=== PATIENT | female | born 1945 | race Caucasian/White ===

== ENCOUNTER 2023-02-09 23:01 | Observation (INO) ==
[2023-02-10 00:09] LABS: Basophils # (auto) 0.08 K/uL (0.00-0.20); Basophils % (auto) 0.8 %; Eosinophils # (auto) 0.07 K/uL (0.00-0.50); Eosinophils % (auto) 0.7 %; Hemoglobin 10.8 g/dl (12.0-16.0); Immature Granulocytes # (auto) 0.02 K/uL (0.01-0.20); Immature Granulocytes % (auto) 0.2 %; Lymphocytes # (auto) 1.73 K/uL (1.20-3.40); Lymphocytes % (auto) 16.7 %; Mean Corpuscular Hemoglobin 30.9 pg (25.0-34.0); Mean Corpuscular Hgb Conc 33.8 g/dL (32.0-36.0); Mean Corpuscular Volume 91.7 fL (80.0-100.0); Monocytes # (auto) 0.54 K/uL (0.11-0.59); Monocytes % (auto) 5.2 %; Neutrophils # (auto) 7.95 K/uL (1.40-6.50); Neutrophils % (auto) 76.4 %; Platelet Count 247 K/uL (130-400); RDW Coefficient of Variation 13.4 % (11.5-14.5); RDW Standard Deviation 45.2 fL (36.4-46.3); Red Blood Count 3.49 M/uL (4.20-5.40); White Blood Count 10.39 K/ul (4.8-10.8)
[2023-02-10 00:23] LABS: BUN Creatinine Ratio 37.5 (10-20); Calcium 8.8 mg/dl (8.6-10.3); Creatinine Clr Calc Pharmacy 62.3 ml/min; Est GFR (African American) 101.2 ml/min; Est GFR (Non-African American) 87.3 ml/min; Potassium 3.3 mmol/L (3.5-5.1)
--- NOTE | 2023-02-10 00:26 | Emergency Department Note ---
Impression & Plan Epistaxis ED Provider Note NAME: SHAGUFTA GARCIA AGE: 77 SEX: F : 1945 ARRIVES VIA: Ambulance INFORMANT: Patient, ED PROVIDER(S): Catherine Moser MD CHIEF COMPLAINT: Epistaxis HPI: This is a 77-year-old female presenting for persistent epistaxis. Patient was seen here 2 times yesterday. Upon second visit here, she was anteriorly packed with Rhino Rocket. She had resolution of her symptoms however today in the last 30 minutes has had slow oozing. She notes prior to this she had more brisk bleeding in her posterior oropharynx. She swallowed blood and then had a episode of vomiting of bright red blood. She does not take any blood thinners at this time, she was stopped on her aspirin. ROS: See above HPI for pertinent positives & negatives. A total of 10 systems reviewed and were otherwise negative. PAST MEDICAL HISTORY: See Below PAST SURGICAL HISTORY: See Below FAMILY HISTORY: See Below SOCIAL HISTORY: See Below HOME MEDICATIONS: See Below ALLERGIES: See Below VITALS: See Below PHYSICAL EXAMINATION: General: resting comfortably in no acute distress Head: Normocephalic and atraumatic Eyes: Normal inspection, extraocular muscles intact Ear, nose, throat: Normal external exam, dried blood overlying the Rhino Rocket without active bleeding Neck: Normal range of motion Respiratory: lungs clear to auscultation bilaterally Cardiovascular: Regular rate/rhythm, no murmur GI: soft, nontender, no guarding or rebound Extremities: nontender, moves all extremities Neuro: The patient awake and alert, appropriately conversive, no focal deficits, symmetric faces Skin: Warm, dry, and intact MEDICAL DECISION MAKING: This is 77-year-old female presenting for persistent epistaxis. Patient's epistaxis may have resolved at this time, I see no blood in the posterior oropharynx, no oozing around the Rhino Rocket. Upon checking records appears that patient was inflated with 2.5 cc of air in the Rhino Rocket. Will inflate this further. Patient tolerated 7.5 cc of air in the Rhino Rocket at this time. I was called to the room as patient had brisk bleeding in the now left naris. Present there is oozing around the right naris around the Rhino Rocket. Removed the old Rhino Rocket, patient had no continued bleeding the left naris, likely continued bleeding in the right naris. Due to now third visit for this and failed anterior packing, will do posterior packing. The posterior packing was soaked in TXA and inserted into the nares. 10 cc of air was insufflated. Patient had almost complete resolution of her epistaxis within 1 minute. Had her rinse her mouth to observe for persistent posterior bleeding. Upon my recent mission patient has had minimal/no bleeding. She appears clinically better, no longer vomiting bright red blood/blood clots. Given Zofran, placed on continuous monitoring. Discussed with Dr. Figueroa, ENT. Can be admitted to medicine service there is no rebleeding. Discussed with Dr. Bowman, stable for admission at this time for observation of posterior packing Laboratory showed anemia to now 10.8. Otherwise no leukocytosis, slight hypokalemia. Differential diagnosis: Anterior wrist posterior epistaxis ER treatment provided: See below Diagnostics interpreted by me: ECG: None Cardiac Monitoring: An order was placed for continuous cardiac monitoring. The monitor shows a rate of 80 with sinus rhythm. Laboratory studies: As stated above and show below. Critical Care Note: I have personally spent 30 minutes of critical care time in the direct management of this patient. This includes bedside care, interpretation of diagnostic studies, and testing, discussion with consultants, patient, and family members, and other required patient management activities. This 30 minutes is in excess of all separately billable procedures. Past Med/Surg History Medical History Hyperlipidemia Hypertension Social History Smoking Status: Current every day smoker Tobacco Type: Cigarettes Preferred Language: [place] Verdean Feels Safe at Home: Yes Allergies Allergies Allergy/AdvReac Type Severity Reaction Status Date / Time azithromycin [From Zithromax] Allergy Intermediate Rash Verified 02/10/23 00:15 Penicillins Allergy Intermediate Rash Verified 02/10/23 00:15 Home Meds Home Medications Medication Instructions Recorded Confirmed atorvastatin 40 mg tablet 40 mg PO HS 02/21/20 02/10/23 multivitamin 1 tab PO QAM 02/21/20 02/10/23 sulfasalazine 500 mg tablet 1,000 mg PO BID 02/21/20 02/10/23 zolpidem 10 mg tablet 5 - 10 mg PO HS PRN Sleep 02/21/20 02/10/23 metoprolol succinate 100 mg 100 mg PO DAILY 02/10/23 02/10/23 tablet,extended release 24 hr omega-3 fatty acids 1,000 mg 1,000 mg PO DAILY 02/10/23 02/10/23 capsule Previous Rx's Medication Instructions Recorded doxycycline hyclate 100 mg tablet 100 mg PO BID #6 tabs 02/09/23 Results & Data (ED) Vital Signs Vital Signs - 24 hr 02/09/23 23:05 02/09/23 23:06 02/09/23 23:06 Temperature Temperature Source Pulse Rate 80 82 Pulse Rate from SpO2 Sensor 83 Respiratory Rate 23 Blood Pressure 189/94 H Blood Pressure Mean 114 Pulse Oximetry 98 Sepsis Recent Fever Within 48 Hours Sepsis New/Unexplained Change in Mental Status Sepsis Action Taken by Nursing 02/09/23 23:07 02/09/23 23:30 02/10/23 00:00 Temperature 37 C Temperature Source Oral Pulse Rate 85 78 82 Pulse Rate from SpO2 Sensor 79 82 Respiratory Rate 15 16 20 Blood Pressure 189/94 H Blood Pressure Mean 125 Pulse Oximetry 97 97 99 Sepsis Recent Fever Within 48 Hours No Sepsis New/Unexplained Change in Mental Status N/A Sepsis Action Taken by Nursing No Action Required Laboratory Data 02/09/23 23:53 02/09/23 23:53 Lab Results 02/09/23 Range/Units 23:53 WBC 10.39 (4.8-10.8) K/ul RBC 3.49 L (4.20-5.40) M/uL Hgb 10.8 L (12.0-16.0) g/dl Hct 32.0 L (37.0-47.0) % MCV 91.7 (80.0-100.0) fL MCH 30.9 (25.0-34.0) pg MCHC 33.8 (32.0-36.0) g/dL RDW Std Deviation 45.2 (36.4-46.3) fL RDW Coeff of Brian 13.4 (11.5-14.5) % Plt Count 247 (130-400) K/uL MPV 10.0 (9.4-12.4) fL Immature Gran % (Auto) 0.2 % Neut % (Auto) 76.4 % Lymph % (Auto) 16.7 % Cache % (Auto) 5.2 % Eos % (Auto) 0.7 % Baso % (Auto) 0.8 % Neut # (Auto) 7.95 H (1.40-6.50) K/uL Lymph # (Auto) 1.73 (1.20-3.40) K/uL Cache # (Auto) 0.54 (0.11-0.59) K/uL Eos # (Auto) 0.07 (0.00-0.50) K/uL Baso # (Auto) 0.08 (0.00-0.20) K/uL Immature Gran # (Auto) 0.02 (0.01-0.20) K/uL Sodium 145 (136-145) mmol/L Potassium 3.3 L (3.5-5.1) mmol/L Chloride 110 H (98-107) mmol/L Carbon Dioxide 30 (21-32) mmol/L Anion Gap 5 (3-11) BUN 24 H (6-23) mg/dl Creatinine 0.64 (0.6-1.2) mg/dl Est Cr Clr Drug Dosing 62.3 ml/min Est GFR ( Amer) 101.2 ml/min Est GFR (Non-Af Amer) 87.3 ml/min BUN/Creatinine Ratio 37.5 H (10-20) Glucose 139 H (70-99(Fasting)) mg/dl Calcium 8.8 (8.6-10.3) mg/dl Blood Type O Negative Antibody Screen NEGATIVE Administered Medications Discontinued Medications Ondansetron HCl (Ondansetron Inj 2 Mg/Ml 2 Ml Vial) Confirm Administered Dose 4 mg .ROUTE [employer] ONE Stop: 02/10/23 01:03 Last Admin: 02/10/23 01:39 Dose: Not Given Documented By: TAVO Ondansetron HCl (Ondansetron Inj 2 Mg/Ml 2 Ml Vial) 4 mg IV NOW STA Stop: 02/10/23 01:39 Last Admin: 02/10/23 01:10 Dose: 4 mg Documented By: TAVO Tranexamic Acid (Txa 10% Non-Iv Routes 100 Mg/Ml Vial) Confirm Administered Dose 1,000 mg .ROUTE [employer] ONE Stop: 02/10/23 00:52 Last Admin: 02/10/23 01:39 Dose: Not Given Documented By: TAVO Tranexamic Acid (Txa 10% Non-Iv Routes 100 Mg/Ml Vial) 1,000 mg NA ONE ONE Stop: 02/10/23 01:38 Last Admin: 02/10/23 01:00 Dose: 1,000 mg Documented By: TAVO Discharge Plan Visit Data Chief Complaint: Nose Bleed (Minor) ED Provider: Catherine Moser Discharge Problem: Epistaxis Forms Stand Alone Forms: My [facility] Prescriptions Prescriptions: No Action atorvastatin 40 mg tablet 40 mg PO HS sulfasalazine 500 mg tablet 1,000 mg PO BID zolpidem 10 mg tablet 5 - 10 mg PO HS PRN (Reason: Sleep) multivitamin [Multiple Vitamin] Tablet 1 tab PO QAM doxycycline hyclate 100 mg tablet 100 mg PO BID Qty: 6 0RF Rx Instructions: STARTED 02/09/23 omega-3 fatty acids 1,000 mg Capsule 1,000 mg PO DAILY metoprolol succinate 100 mg tablet extended release 24 hr 100 mg PO DAILY Referrals Referrals: Eduar Hawkins CRNP [Primary Care Provider] -
[2023-02-10] MEDS ORDERED: TXA 10% Non-IV Routes 100 MG/ML VIAL ONE ×2 (00:51→01:37)
[2023-02-10] MEDS ORDERED: ONDANSETRON INJ 2 MG/ML 2 ML VIAL ONE (01:02)
[2023-02-10] MEDS ORDERED: ONDANSETRON INJ 2 MG/ML 2 ML VIAL IV STA (01:38)
--- NOTE | 2023-02-10 03:23 | History & Physical Report ---
Date of Service February 10, 2023 Assessment & Plan (1) Right-sided nosebleed: Plan: 77-year-old female with past med history significant for CAD s/p stents, ulcerative colitis, hyperlipidemia, insomnia, ongoing tobacco abuse, chronic rhinitis, abdominal aortic aneurysm, carotid stenosis, left popliteal cyst, solitary nodule of lung, presents with epistaxis. Patient was in the ER on February 08 two times for right sided nosebleed. Initially prior to coming to the ER the bleeding stopped. The bleeding recurred so came back to the ER again and s/p initially sprayed TXA but has bleeding picked up gain so 4.5 rapid Rhino soaked in TXA solution was placed in right nostril. After 15 minutes the bleeding started again so was replaced with 5.5 rapid Rhino soaked in TXA and lidocaine with epinephrine was placed. Packing was inflated with about 2.5 cc o f air. The patient was discharged with p.o. doxycycline. Patient again comes today because of slow oozing of blood from same right-sided nostril. And she was swallowing blood and vomiting it up. She stopped aspirin. Today in the ER again same Rhino Rocket was inflated with 7.5 cc of air. There was again some oozing of the right nares through the Rhino Rocket. Old anterior Rhino Rocket was removed. Posterior packing was soaked with TXA and inserted and 10 cc of air was inflated and seems complete resolution of epistaxis. Right-sided nosebleed Recurrent as mentioned above Currently s/p posterior nasal packing Aspirin held Continue doxycycline Will keep her n.p.o. Follow labs Consult ENT in a.m. History of CAD S/p stents many years ago Holding aspirin Continue statin and beta-jamir Close monitor History of ulcerative colitis On sulfasalazine Hyperlipidemia On statin Ongoing tobacco abuse Needs counseling DVT prophylaxis SCDs for now Disposition Med/tele Full code History of Present Illness Chief Complaint: Epistaxis Primary Care Provider: RITU Ramirez 77-year-old female with past med history significant for CAD s/p stents, ulcerative colitis, hyperlipidemia, insomnia, ongoing tobacco abuse, chronic rhinitis, abdominal aortic aneurysm, carotid stenosis, left popliteal cyst, solitary nodule of lung, presents with epistaxis. Patient was in the ER on February 08 two times for right sided nosebleed. Initially prior to coming to the ER the bleeding stopped. The bleeding recurred so came back to the ER again and s/p initially sprayed TXA but has bleeding picked up gain so 4.5 rapid Rhino soaked in TXA solution was placed in right nostril. After 15 minutes the bleeding started again so was replaced with 5.5 rapid Rhino soaked in TXA and lidocaine with epinephrine was placed. Packing was inflated with about 2.5 cc of air. The patient was discharged with p.o. doxycycline. Patient again comes today because of slow oozing of blood from same right-sided nostril. And she was swallowing blood and vomiting it up. She stopped aspirin. Today in the ER again same Rhino Rocket was inflated with 7.5 cc of air. There was again some oozing of the right nares through the Rhino Rocket. Old anterior Rhino Rocket was removed. Posterior packing was soaked with TXA and inserted and 10 cc of air was inflated and seems complete resolution of epistaxis. ER discussed with on-call ENT. We are called for admission for observation. Patient thinks there could be small oozing on the back of the throat but not sure. Has some headache. Has some cough. Last few days she has some cold symptoms. No sore throat. Feeling somewhat hot. No chest pain. Earlier she was feeling short of breath but that resolved now. Has had a lot of nausea . No abdominal pain. Normal bowel and bladder movements. Currently resting comfortably and hemodynamically stable. Past medical history. As mentioned above Past surgical history. Cardiac catheterization stents to LAD and RCA. Total hy sterectomy. Tonsillectomy with adenoid tube. Appendectomy. Bilateral cataract extraction. Right wrist surgery. Social history.'s smoking 1.5 packs a day for many years. Denies alcohol use. No drug use. Family history. Father had brain aneurysm. Mother had heart disease. Allergies Allergy/AdvReac Type Severity Reaction Status Date / Time azithromycin [From Zithromax] Allergy Intermediate Rash Verified 02/10/23 00:15 Penicillins Allergy Intermediate Rash Verified 02/10/23 00:15 Home Medications Medication Instructions Recorded Confirmed Type atorvastatin 40 mg tablet 40 mg PO HS 02/21/20 02/10/23 History multivitamin 1 tab PO QAM 02/21/20 02/10/23 History sulfasalazine 500 mg tablet 1,000 mg PO BID 02/21/20 02/10/23 History zolpidem 10 mg tablet 5 - 10 mg PO HS PRN Sleep 02/21/20 02/10/23 History doxycycline hyclate 100 mg tablet 100 mg PO BID #6 tabs 02/09/23 02/10/23 Rx metoprolol succinate 100 mg 100 mg PO DAILY 02/10/23 02/10/23 History tablet,extended release 24 hr omega-3 fatty acids 1,000 mg 1,000 mg PO DAILY 02/10/23 02/10/23 History capsule Past Med/Surg History Medical History Hyperlipidemia Hypertension Social History Smoking Status: Current every day smoker Tobacco Type: Cigarettes Hx Alcohol Use: No Hx Substance Use: No Preferred Language: Bulgarian Communication Ability: Effective Sound Effects Person Required: No Beliefs That Will Affect Care: None Current Living Situation: Alone Current Living Situation Comment: family lives next door Feels Safe at Home: Yes Safety Concerns: Feels Safe At This Time Assistive Devices: Denture - Upper, Denture - Lower, Glasses and Hearing Aid - Bilateral Review of Systems Review of Systems: All systems reviewed & are unremarkable except as noted in HPI & below Physical Exam Physical Exam: General- Not in distress Head- atraumatic Eyes- PERRL. ENT- Nasal packing seen Neck- supple, no JVD. Lungs- clear to auscultation no wheezing or crackles. Heart- regular rhythm; no murmur, no gallop. Abdomen- normal bowel sounds, soft, nontender, no distension. Extremities- no pretibial edema, no erythema seen. Neuro- alert, oriented x 3; PERRL, no facial palsy; no dysarthria; moves extremities. Skin- warm & dry Results & Data Results & Data Vital Signs (Past 12 Hours) Vital Signs Temp Pulse Resp BP Pulse Ox 02/10/23 00:00 82 20 99 02/09/23 23:30 78 16 97 02/09/23 23:07 37 C 85 15 189/94 H 97 02/09/23 23:06 82 23 98 02/09/23 23:06 80 02/09/23 23:05 189/94 H Diagnostic Findings Laboratory Results WBC 10.39 K/ul (4.8-10.8) 02/09/23 23:53 RBC 3.49 M/uL (4.20-5.40) L 02/09/23 23:53 Hgb 10.8 g/dl (12.0-16.0) L 02/09/23 23:53 Hct 32.0 % (37.0-47.0) L 02/09/23 23:53 MCV 91.7 fL (80.0-100.0) 02/09/23 23:53 MCH 30.9 pg (25.0-34.0) 02/09/23 23:53 MCHC 33.8 g/dL (32.0-36.0) 02/09/23 23:53 RDW Std Deviation 45.2 fL (36.4-46.3) 02/09/23 23:53 RDW Coeff of Brian 13.4 % (11.5-14.5) 02/09/23 23:53 Plt Count 247 K/uL (130-400) 02/09/23 23:53 MPV 10.0 fL (9.4-12.4) 02/09/23 23:53 Immature Gran % (Auto) 0.2 % 02/09/23 23:53 Neut % (Auto) 76.4 % 02/09/23 23:53 Lymph % (Auto) 16.7 % 02/09/23 23:53 Hall % (Auto) 5.2 % 02/09/23 23:53 Eos % (Auto) 0.7 % 02/09/23 23:53 Baso % (Auto) 0.8 % 02/09/23 23:53 Neut # (Auto) 7.95 K/uL (1.40-6.50) H 02/09/23 23:53 Lymph # (Auto) 1.73 K/uL (1.20-3.40) 02/09/23 23:53 Hall # (Auto) 0.54 K/uL (0.11-0.59) 02/09/23 23:53 Eos # (Auto) 0.07 K/uL (0.00-0.50) 02/09/23 23:53 Baso # (Auto) 0.08 K/uL (0.00-0.20) 02/09/23 23:53 Immature Gran # (Auto) 0.02 K/uL (0.01-0.20) 02/09/23 23:53 Sodium 145 mmol/L (136-145) 02/09/23 23:53 Potassium 3.3 mmol/L (3.5-5.1) L 02/09/23 23:53 Chloride 110 mmol/L (98-107) H 02/09/23 23:53 Carbon Dioxide 30 mmol/L (21-32) 02/09/23 23:53 Anion Gap 5 (3-11) 02/09/23 23:53 BUN 24 mg/dl (6-23) H 02/09/23 23:53 Creatinine 0.64 mg/dl (0.6-1.2) 02/09/23 23:53 Est Cr Clr Drug Dosing 62.3 ml/min 02/09/23 23:53 Est GFR ( Amer) 101.2 ml/min 02/09/23 23:53 Est GFR (Non-Af Amer) 87.3 ml/min 02/09/23 23:53 BUN/Creatinine Ratio 37.5 (10-20) H 02/09/23 23:53 Glucose 139 mg/dl (70-99(Fasting)) H 02/09/23 23:53 Calcium 8.8 mg/dl (8.6-10.3) 02/09/23 23:53 Blood Type O Negative 02/09/23 23:53 Antibody Screen NEGATIVE 02/09/23 23:53 Code Status & VTE Plan VTE Prophylaxis Plan VTE Prophylaxis will be ordered: Yes
[2023-02-10] MEDS ORDERED: ZOLPIDEM TARTRATE 5 MG TAB PO PRN (06:25)
[2023-02-10] MEDS ORDERED: NITROGLYCERIN SL 0.4 MG/TAB TAB SL PRN (06:25)
[2023-02-10] MEDS ORDERED: ACETAMINOPHEN 325 MG TAB PO PRN (06:25)
[2023-02-10] MEDS ORDERED: D5W AND 1/2NSS 1,000 ML IV SCH (06:25)
[2023-02-10] MEDS ORDERED: ONDANSETRON INJ 2 MG/ML 2 ML VIAL IV PRN (06:25)
[2023-02-10] MEDS ORDERED: METOPROLOL SUCC 50MG EXT REL TAB PO SCH (09:00)
[2023-02-10 09:12] LABS: Basophils # (auto) 0.09 K/uL (0.00-0.20); Eosinophils # (auto) 0.01 K/uL (0.00-0.50); Eosinophils % (auto) 0.1 %; Hematocrit (blood only) 30.6 % (37.0-47.0); Hemoglobin 9.9 g/dl (12.0-16.0); Immature Granulocytes # (auto) 0.03 K/uL (0.01-0.20); Immature Granulocytes % (auto) 0.3 %; Lymphocytes % (auto) 23.1 %; Mean Corpuscular Hgb Conc 32.4 g/dL (32.0-36.0); Mean Corpuscular Volume 92.7 fL (80.0-100.0); Mean Platelet Volume 9.9 fL (9.4-12.4); Monocytes # (auto) 0.53 K/uL (0.11-0.59); Monocytes % (auto) 5.8 %; Neutrophils # (auto) 6.35 K/uL (1.40-6.50); Neutrophils % (auto) 69.7 %; Platelet Count 227 K/uL (130-400); RDW Coefficient of Variation 13.3 % (11.5-14.5); RDW Standard Deviation 45.9 fL (36.4-46.3); White Blood Count 9.11 K/ul (4.8-10.8)
[2023-02-10] MEDS: MULTIVITAMIN TAB PO SCH (09:16)
[2023-02-10] MEDS: DOXYCYCLINE HYCLATE 100 MG CAP PO SCH ×2 (09:16→20:57)
[2023-02-10] MEDS: sulfaSALAzine 500 MG TABLET PO SCH ×2 (09:16→20:57)
[2023-02-10 09:27] LABS: BUN Creatinine Ratio 48.2 (10-20); Calcium 8.3 mg/dl (8.6-10.3); Creatinine Clr Calc Pharmacy 65.6 ml/min; Est GFR (African American) 105.7 ml/min; Est GFR (Non-African American) 91.2 ml/min; Magnesium 1.7 mg/dl (1.7-2.4); Potassium 3.1 mmol/L (3.5-5.1)
--- NOTE | 2023-02-10 09:54 | Communication Note ---
Date of Service: February 10, 2023 77-year-old female with past med history significant for CAD s/p stents, ulcerative colitis, hyperlipidemia, insomnia, ongoing tobacco abuse, chronic rh initis, abdominal aortic aneurysm, carotid stenosis, left popliteal cyst, solitary nodule of lung, presents with epistaxis. Reported she has been having cold symptoms for over a week. Then epistaxis started 2 days ago, intermittent, necessitating multiple ER visit Recurred despite packing Admitted a few hours ago for monitoring and ENT evaluation. Patient reports no bleeding since coming upstairs a few hours ago. Reported mild headache earlier but none at this time. Has stopped her ASA 81mg still epistaxis started Denied OTC NSAID use. Acknowledged OTC meds for her cold Exam notable for elderly woman, packed right nose. Labs notable for Hb of 10.8 yesterday and 9.9 today (Did not see old records of labs); K of 3.1. Monitor Hb Monitor for bleeding Hold antiplatelet. No anticoagulants Continue doxycycline Discussed with ENT Dr Figueroa. She recommends that if no bleeding, no further intervention at this time. Patient will need to keep packing for 3-5 days Continue antibiotics If stable, i will plan to dc tomorrow morning Replete hypokalemia Monitor electrolytes Other plans as detailed in H&P this AM by Dr Bowman
[2023-02-10] MEDS ORDERED: POTASSIUM CHLORIDE CRTAB 20 MEQ TABCR PO STA (10:11)
[2023-02-10 15:54] LABS: Hematocrit (blood only) 29.2 % (37.0-47.0); Hemoglobin 9.6 g/dl (12.0-16.0)
--- NOTE | 2023-02-10 16:59 | Communication Note ---
Date of Service: February 10, 2023 Discussed patient's course with hospitalist. No ongoing bleeding. Recommend leaving packing in place for 3-5 days, will need to return to ED or can seek care with external ENT for removal as no physician in our office for the next week. Afrin TID and nasal saline spray QID. Recommend abx (keflex) while packing in place. F/u after packing removal for exam.
[2023-02-10] MEDS: METOPROLOL SUCC 50MG EXT REL TAB PO SCH (20:56)
[2023-02-10] MEDS ORDERED: ATORVASTATIN 40 MG TAB PO SCH (21:00)
[2023-02-11] MEDS: METOPROLOL SUCC 50MG EXT REL TAB PO SCH (08:38)
[2023-02-11] MEDS: MULTIVITAMIN TAB PO SCH (08:39)
[2023-02-11] MEDS: DOXYCYCLINE HYCLATE 100 MG CAP PO SCH (08:39)
[2023-02-11] MEDS: sulfaSALAzine 500 MG TABLET PO SCH (08:39)
[2023-02-11 08:54] LABS: Hematocrit (blood only) 28.4 % (37.0-47.0); Hemoglobin 9.6 g/dl (12.0-16.0); Mean Corpuscular Hemoglobin 30.7 pg (25.0-34.0); Mean Corpuscular Hgb Conc 33.8 g/dL (32.0-36.0); Mean Corpuscular Volume 90.7 fL (80.0-100.0); Mean Platelet Volume 10.1 fL (9.4-12.4); Platelet Count 223 K/uL (130-400); RDW Coefficient of Variation 13.2 % (11.5-14.5); RDW Standard Deviation 44.2 fL (36.4-46.3); Red Blood Count 3.13 M/uL (4.20-5.40); White Blood Count 12.29 K/ul (4.8-10.8)
[2023-02-11 09:09] LABS: BUN Creatinine Ratio 33.9 (10-20); Calcium 8.6 mg/dl (8.6-10.3); Creatinine Clr Calc Pharmacy 68.1 ml/min; Est GFR (African American) 105.7 ml/min; Est GFR (Non-African American) 91.2 ml/min; Magnesium 1.6 mg/dl (1.7-2.4); Phosphorus 3.1 mg/dl (2.5-4.9); Potassium 3.3 mmol/L (3.5-5.1)
[2023-02-11] MEDS ORDERED: POTASSIUM CHLORIDE CRTAB 20 MEQ TABCR PO STA (09:14)
[2023-02-11] MEDS ORDERED: MAGNESIUM OXIDE 400 MG TAB PO SCH (09:15)
--- NOTE | 2023-02-11 12:02 | Discharge Summary ---
Date of Service February 11, 2023 Admission HPI Per Admitting Provider 77-year-old female with past med history significant for CAD s/p stents, ulcerative colitis, hyperlipidemia, insomnia, ongoing tobacco abuse, chronic rhinitis, abdominal aortic aneurysm, carotid stenosis, left popliteal cyst, solitary nodule of lung, presents with epistaxis. Patient was in the ER on February 08 two times for right sided nosebleed. Initially prior to coming to the ER the bleeding stopped. The bleeding recurred so came back to the ER again and s/p initially sprayed TXA but has bleeding picked up gain so 4.5 rapid Rhino soaked in TXA solution was placed in right nostril. After 15 minutes the bleeding started again so was replaced with 5.5 rapid Rhino soaked in TXA and lidocaine with epinephrine was placed. Packing was inflated with about 2.5 cc of air. The patient was discharged with p.o. doxycycline. Patient again comes today because of slow oozing of blood from same right-sided nostril. And she was swallowing blood and vomiting it up. She stopped aspirin. Today in the ER again same Rhino Rocket was inflated with 7.5 cc of air. There was again some oozing of the right nares through the Rhino Rocket. Old anterior Rhino Rocket was removed. Posterior packing was soaked with TXA and inserted and 10 cc of air was inflated and seems complete resolution of epistaxis. ER discussed with on-call ENT. We are called for admission for observation. Patient thinks there could be small oozing on the back of the throat but not sure. Has some headache. Has some cough. Last few days she has some cold symptoms. No sore throat. Feeling somewhat hot. No chest pain. Earlier she was feeling short of breath but that resolved now. Has had a lot of nausea . No abdominal pain. Normal bowel and bladder movements. Currently resting comfortably and hemodynamically stable. Past medical history. As mentioned above Past surgical history. Cardiac catheterization stents to LAD and RCA. Total hysterectomy. Tonsillectomy with adenoid tube. Appendectomy. Bilateral ca taract extraction. Right wrist surgery. Social history.'s smoking 1.5 packs a day for many years. Denies alcohol use. No drug use. Family history. Father had brain aneurysm. Mother had heart disease. Admission Exam Per Admitting Provider General- Not in distress Head- atraumatic Eyes- PERRL. ENT- Nasal packing seen Neck- supple, no JVD. Lungs- clear to auscultation no wheezing or crackles. Heart- regular rhythm; no murmur, no gallop. Abdomen- normal bowel sounds, soft, nontender, no distension. Extremities- no pretibial edema, no erythema seen. Neuro- alert, oriented x 3; PERRL, no facial palsy; no dysarthria; moves extremities. Skin- warm & dry Principal Diagnosis Epistaxis Discharge Exam Constitutional + well hydrated; no acute distress Elderly woman Eyes PERRL, conjunctivae normal, anicteric sclerae ENMT Nose packed Respiratory normal respiratory effort, lungs clear to auscultation Cardiovascular Rate/Rhythm: regular rate and regular rhythm S1 S2 Gastrointestinal (Abdomen) normal bowel sounds, soft, nontender, no hepatosplenomegaly Musculoskeletal no cyanosis or clubbing, extremities motor strength 5/5 Neurologic PERRL, EOMI, accommodation nl, no face palsy, no dysarthria Psychiatric A+Ox3, euthymic affect Discharge Data Allergies Allergy/AdvReac Type Severity Reaction Status Date / Time azithromycin [From Zithromax] Allergy Intermediate Rash Verified 02/10/23 00:15 Penicillins Allergy Intermediate Rash Verified 02/10/23 00:15 Consultations 02/10/23 01:46 ED Decision to Admit Stat 02/10/23 08:00 Consult Otolaryngology (Head and Neck) Routine Hospital Course (1) Right-sided nosebleed: 77-year-old female with past med history significant for CAD s/p stents, ulcerative colitis, hyperlipidemia, insomnia, ongoing tobacco abuse, chronic rhinitis, abdominal aortic aneurysm, carotid stenosis, left popliteal cyst, solitary nodule of lung, presents with epistaxis. Patient was in the ER on February 08 two times for right sided nosebleed. Initially prior to coming to the ER the bleeding stopped. The bleeding recurred so came back to the ER again and s/p initially sprayed TXA but has bleeding picked up gain so 4.5 rapid Rhino soaked in TXA solution was placed in right nostril. After 15 minutes the bleeding started again so was replaced with 5.5 rapid Rhino soaked in TXA and lidocaine with epinephrine was placed. Packing was inflated with about 2.5 cc of air. The patient was discharged with p.o. doxycycline. Patient again comes today because of slow oozing of blood from same right-sided nostril. And she was swallowing blood and vomiting it up. She stopped aspirin. Today in the ER again same Rhino Rocket was inflated with 7.5 cc of air. There was again some oozing of the right nares through the Rhino Rocket. Old anterior Rhino Rocket was removed. Posterior packing was soaked with TXA and inserted and 10 cc of air was inflated and seems complete resolution of epistaxis. Right-sided nosebleed Recurrent as mentioned above Currently s/p posterior nasal packing Home Aspirin 81mg held for now Patient was monitored overnight. Epistaxis resolved Hb remained stable I discussed with ENT Dr Figueroa on 02/10/23. She recommends that if no bleeding, no further intervention at this time. Patient will need to keep packing for 3-5 days Patient reports allergy to penicillin She reports she still has doxycycline prescribed in ER at home Advised to continue taking the doxycycline She is to return to ER on 02/13/23 for eval and removal of nose packing She is to follow up with ENT outpatient History of CAD S/p stents many years ago Holding aspirin till nose pack is removed Continue statin and beta-jamir History of ulcerative colitis On sulfasalazine Hyperlipidemia On statin Total Time Total Time Spent Total Time Spent (In Minutes): 35 Total Time Includes: Examination of the Patient, Discharge Planning and Medication Reconciliation Discharge Plan Discharge Items Patient Disposition: Home - Self-Care Reason For Visit: EPISTAXSIS Discharge Diagnosis: Epistaxis Activity: Resume your previous activity Non-emergency contact: Primary Care Provider Call non-emergency contact if: you have any medication questions Follow-up/Referrals: Domenico Figueroa MD [Physician] - 05/17/23 2:00 pm Eduar Hawkins CRNP [Primary Care Provider] - 02/18/23 7:20 am (Your doctor's office cancelled your previously scheduled appointment that was on 02/16, as th ere was not enough time scheduled for a hospital follow up appointment. ) Diet: Heart Healthy Addtl Attending Provider Instructions: Mrs Isaac You came to the hospital multiple times for persistent nose bleeds that required packing. You were observed in the hospital overnight. You are being discharged home as bleeding has stopped. Please continue nose packing and return to the Emergency Room on 02/13/23 for removal of nose packing. Continue the prescribed antibiotics. Please follow up with ENT Doctor. It was a pleasure taking care of you. Pending Studies at Discharge: No Stand-Alone Forms: My [facility], Smoking Cessation Medications and DC Order Prescriptions: Continued atorvastatin 40 mg tablet 40 mg PO HS sulfasalazine 500 mg tablet 1,000 mg PO BID zolpidem 10 mg tablet 5 - 10 mg PO HS PRN (Reason: Sleep) multivitamin Tablet 1 tab PO QAM doxycycline hyclate 100 mg tablet 100 mg PO BID Qty: 6 0RF Rx Instructions: STARTED 02/09/23 omega-3 fatty acids 1,000 mg Capsule 1,000 mg PO DAILY metoprolol succinate 100 mg tablet extended release 24 hr 100 mg PO DAILY Discharge Orders: Discharge Order (Routine); Ordered 02/11/23 Ordered By: Rachelle Sales Admission Data Admit Date/Time: 02/10/23 03:05 Attending Provider: Rachelle Sales I. Admit Provider: Christophe Bowman Primary Care Provider: Eduar Hawkins Other Providers: Christophe Bowman; Domenico Figueroa Other Interventions: Discharge Summary Assessment (RN) Last Done: 02/11/23 12:09
== END 2023-02-11 12:39 | disposition home or self-care (01) | DRG 151 ==
LOC: ED 23:01 → INTOOBSV 02-10 03:05 → 2N 02-10 03:05